=== PATIENT | female | born 1990 | race Caucasian/White ===

== ENCOUNTER 2017-10-03 10:55 | Emergency (ER) | payer MEDICAID ==
[~2017-10-03] VITALS: Ht 162.6 cm; Wt 89.0 kg
[2017-10-03 11:29] LABS: CLARITY URINE CLEAR (CLEAR); COLOR URINE YELLOW (YELLOW); KETONES URINE NEGATIVE (NEGATIVE); LEUKOCYTE ESTERASE URINE NEGATIVE (NEGATIVE); NITRITE URINE NEGATIVE (NEGATIVE); OCCULT BLOOD URINE NEGATIVE (NEGATIVE); PROTEIN URINE NEGATIVE (NEGATIVE); SPECIFIC GRAVITY URINE 1.023 (1.005-1.030); UROBILINOGEN URINE 0.2 E.U./dL (0.2-1.0)
[2017-10-03 15:48] LABS: CHLORIDE 106 mEq/L (98-107)
[2017-10-03 15:50] LABS: PROTHROMBIN TIME 10.7 sec (9.4-11.6)
[2017-10-03 15:53] LABS: BASOPHILS % 0.7 % (0.0-2.0); EOSINOPHILS % 1.1 % (0.0-5.0); HEMATOCRIT. 39.6 % (36.0-48.0); HEMOGLOBIN. 13.4 g/dL (12.0-16.0); LYMPHOCYTES % 19.9 % (20.0-50.0); MEAN CORPUSCULAR HEMOGLOBIN 27.1 pg (28.0-32.0); MEAN CORPUSCULAR VOLUME 80.4 fL (81.0-99.0); MEAN PLATELET VOLUME 7.2 fl (7.4-10.4); MONOCYTES % 6.7 % (2.0-8.0); NEUTROPHILS % 71.6 % (40.0-76.0); PLATELET 385 x1000/uL (130-400); RED BLOOD CELL COUNT 4.92 mill/uL (4.2-5.4); RED CELL DISTRIBUTION WIDTH 15.1 % (11.6-14.6)
[2017-10-03 18:13] VITALS: BP 118/70
== END 2017-10-03 18:16 | disposition home or self-care (01) ==
LOC: ER 11:16
DX: K76.0 Fatty (change of) liver, not elsewhere classified (principal); R10.13 Epigastric pain; F17.200 Nicotine dependence, unspecified, uncomplicated
CPT/HCPCS: 36415; 76705; 80053; 81003; 81025; 83690; 85025; 85610; 99285; Z7610

== ENCOUNTER 2022-01-31 09:11 | Emergency (ER) | payer MEDICAID, OTHER ==
[~2022-01-31] VITALS: Ht 167.6 cm; Wt 100.0 kg
[2022-01-31 09:45] VITALS: BP 133/53
[2022-01-31] MEDS ORDERED: ESCI5TAB PO (09:47)
[2022-01-31] MEDS ORDERED: AMOX-494 MT (10:21)
[2022-01-31] MEDS ORDERED: CIPHCO LEFT EAR (10:21)
[2022-01-31] MEDS ORDERED: [UNRECOGNIZED DRUG - CODE] OT (10:21)
[2022-01-31] MEDS ORDERED: NAPR-679 MT (10:21)
[2022-01-31] MEDS ORDERED: CARB-274 EACH EAR (10:21)
== END 2022-01-31 10:33 | disposition home or self-care (01) ==
LOC: ER 09:11
DX: H66.92 Otitis media, unspecified, left ear (principal); H61.23 Impacted cerumen, bilateral
CPT/HCPCS: 99283

== ENCOUNTER 2022-06-29 08:39 | Emergency (ER) | payer OTHER ==
[~2022-06-29] VITALS: Ht 165.1 cm; Wt 104.0 kg
[~2022-06-29 08:39] MED LIST: AMOX-494 MT; CARB-274 EACH EAR; CIPHCO LEFT EAR; ESCI5TAB PO; NAPR-679 MT; [UNRECOGNIZED DRUG - CODE] OT
[2022-06-29 11:15] LABS: CLARITY URINE CLOUDY (CLEAR); COLOR URINE YELLOW (YELLOW); KETONES URINE NEGATIVE (NEGATIVE); LEUKOCYTE ESTERASE URINE TRACE (NEGATIVE); NITRITE URINE NEGATIVE (NEGATIVE); OCCULT BLOOD URINE 3+ (NEGATIVE); PROTEIN URINE TRACE (NEGATIVE); SPECIFIC GRAVITY URINE 1.026 (1.005-1.030); UROBILINOGEN URINE 0.2 E.U./dL (0.2-1.0)
[2022-06-29] MEDS ORDERED: KETOROLAC 60MG/2ML VIAL IM ONE (11:15)
[2022-06-29 11:26] VITALS: BP 127/84
[2022-06-29] MEDS ORDERED: IBUP-2029 MT (11:45)
[2022-06-29] MEDS ORDERED: CYCL10TA21 MT (11:45)
== END 2022-06-29 14:05 | disposition home or self-care (01) ==
LOC: ER 09:08
DX: M54.16 Radiculopathy, lumbar region (principal)
CPT/HCPCS: 73502; 81003; 81025; 96372; 99284; J1885; Z7610